=== PATIENT | male | born 1995 | race Two or more races ===

== ENCOUNTER 2018-10-21 03:43 | Emergency (ER) | payer OTHER ==
[~2018-10-21] VITALS: Ht 167.6 cm; Wt 63.5 kg
[2018-10-21] MEDS ORDERED: SKELAXIN800 MG PO (07:01)
[2018-10-21] MEDS ORDERED: KETO10TA2 PO (07:01)
== END 2018-10-21 07:15 | disposition home or self-care (01) ==
LOC: ER 03:43
DX: S00.83XA Contusion of other part of head, initial encounter (principal); S33.5XXA Sprain of ligaments of lumbar spine, initial encounter; V49.9XXA Car occupant (driver) (passenger) injured in unspecified traffic accident, initial encounter; Y93.89 Activity, other specified; Y92.488 Other paved roadways as the place of occurrence of the external cause; Y99.8 Other external cause status